=== PATIENT | female | born 2000 | race Hispanic/Latino ===

== ENCOUNTER 2020-08-16 00:18 | Inpatient (IN) | payer OTHER ==
[2020-08-16] VITALS (10 sets, daily range): BP systolic 97–115; BP diastolic 53–71
[~2020-08-16] VITALS: Ht 154.9 cm; Wt 67.5 kg
[2020-08-16] MEDS ORDERED: LACTATED RINGER'S 1000 ML IV STA (01:31)
[2020-08-16] MEDS ORDERED: PENICILLIN G POTASSIUM IV 5 MU in D5W MINI-BAG PLUS 100 ML IV STA (01:31)
[2020-08-16] MEDS ORDERED: BETAMETHASONE SOLUSPAN 6MG/ML 5ML VIAL (J0702 PER 3MG) IM SCH (01:45)
[2020-08-16] MEDS ORDERED: ONDANSETRON 4MG/2ML VIAL IV PRN (01:45)
[2020-08-16] MEDS ORDERED: miSOPROStol 25 MCG 1/4 TAB (S0191) PO ONE (01:45)
[2020-08-16] MEDS: LR 1,000 ML IV SCH ×2 (02:02→07:32)
--- NOTE | 2020-08-16 02:08 | HPEPDOC ---
Obstetrical History & Physical General Date of Admission Aug 16, 2020 at 01:42 History of Present Illness 20 yo @ 35+4 who presents to triage with Leakage of clear fluids starting at 11pm. patient is transfer of care from [place]. she got in town on Tuesday and is still on quarantine. she reports no complications this excpet that she was told that she had a band around her placenta when she was 20 weeks. she has had multiple F/U US Which per her report said that the band resolved. we do not have access to her records. RN tried to contact her pior mauro sullivan but were unable to reach them. patient reports regular movements. she denies any contractions. she has no other concerns. Chief Complaint: LOF, pre-term Care Care: Other (transfer of care on tuesday. we do not have access to her records) Dating Final EDC: Sep 16, 2020 Final EDC by: LMP Antepartum Course Diagnos(e)s 1. Transfer of care at 35+4- no records 2. Band around placenta that resolved 3. PPROM 4. GBS unknown Past Medical History Past Obstetrical History : Past Obstetrical History: Multigravida Type of Delivery: Spontaneous Vaginal Del. Sex of : Female Weight of Infant (grams): 6 (lb) Complications: No SUPERVISORY AIDE History: No pertinent history Past Medical History Surgical History: Denies/None Family History Significant Family History: No pertinent family hx Social History Marital Status: Family situation: Spouse/partner home Psychosocial History: No pertinent psych hx * Smoker: non-smoker Drugs: denies Abuse Violence Screening Have you been hit/kicked/slapp: No Have you been sexually assault: No Imunizations Tdap status: current Influenza Status: current Allergies Coded Allergies: No Known Allergies (Verified Allergy, Unknown, 08/16/20) Physical Examination Physical Examination GENERAL: Alert and oriented times three. BREAST: . ABDOMEN: Gravid and non-tender to touch. FETUS: Is vertex (VTX) by US, MVP 4cm HEART RATE: Regular rate and rhythm. LUNGS: Normal work of breathing Spec: Positive nitrizine, pooling noted of a lot of clear fluids EXTREMITIES: No edema. Pertinent Laboratoy Data Blood Type: O+ RBC Antibody Screen: Negative HIV: Unknown Hepatitis B: Unknown Rapid Plasma Reagin: Unknown Rubella: Unknown Varicella: Unknown Chlamydia/Gonorrhea: Unknown Group B Streptococcus: Unknown Quad Screen Test: Unknown Cystic Fibrosis: Unknown Steroid Therapy Steroid Therapy: Yes Date #1: Aug 16, 2020 Reason PPROM @ 35+4 Vaginal Examination Dilation: 1cm Assessment Heart Rate (FHR): 120 Variability: Moderate Accelerations: Positive Decelerations: Variable Tocometer Contractions: Yes Frequency: irregular Duration: less than 60 seconds Strength: palpated as mild Assessment/Plan Assessment 20 yo @ 35+4 who presents to triage with Leakage of clear fluids starting at 11pm. SROM check done and positive for nitrizine and diffuse pooling of clear fluids in the vagina. still have normal fluids around baby. patient is not contraction. she is on quarantine, has been in town for 7 days. normal vitals, no s/s of infection. 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 Counseled on Pitocin and induction of labor (IOL). Lactated Ringers (LR): Bolus 1000 mL, then at 125 mL/hr. Anticipate normal spontaneous delivery (). C-S as appropriate. Labor and Delivery Counseling REVIEWED CONSENT FOR VAGINAL DELIVERY WHICH IS DELIVERY THROUGH VAGINA. YOU MAY REQUIRE AUGMENTATION WITH PITOCIN YOU MAY REQUIRE EPISIOTOMY TO ALLOW BABY TO DELIVER VAGINALLY WHEN PUSHING BECOMES INEFFECTIVE OR IF DELIVERY NEEDS TO BE EXPEDITED FOR REASONS. CS MAY BE REQUIRED ON URGENT BASIS DUE TO ENVIRONMENT OR MATERNAL REASONS WHEN DELIVERY NEEDS TO BE EXPEDITED. RISKS TO INTERVENTION IS VAGINAL LACERATIONS REPAIR OF EPISIOTOMY CERVICAL REPAIR BOWEL OR BLADDER INJURY RISK OF PP HEMORRHAGE REQUIRE BLOOD TRANSFUSION RISK HYSTERECTOMY RISK ADMISSION NICU, RISK TACHYSYSTOLE RISK OF SCRATCHES , HEMATOMAS , INTRACRANIAL BLEED. PRESENTLY CATEGORY 1 STRIP SAFE TO PROCEED CLAUDE FIELD MD Aug 16, 2020 02:08
[2020-08-16 02:25] LABS: HEMATOCRIT 35.1 % (36.0-47.0); HEMOGLOBIN 11.6 g/dl (12.0-15.5); MEAN CORPUSCULAR HEMOGLOBIN 30.7 pg (27.0-33.0); MEAN CORPUSCULAR VOLUME 92.9 fl (80.0-96.0); PLATELET COUNT, AUTOMATED 171 10^3/uL (150-450); RED BLOOD COUNT 3.78 10^6/uL (4.00-5.40)
[2020-08-16 03:35] LABS: HIV 1&2 SCREEN CENTAUR NEGATIVE (NEGATIVE)
[2020-08-16] MEDS: PENICILLIN G POTASSIUM IV 2.5 MU in IV 1 EA IV SCH ×5 (06:46→22:36)
[2020-08-16 18:40] LABS: HEMATOCRIT 34.9 % (36.0-47.0); HEMOGLOBIN 11.3 g/dl (12.0-15.5); MEAN CORPUSCULAR HEMOGLOBIN 29.8 pg (27.0-33.0); MEAN CORPUSCULAR HGB CONC 32.4 g/dl (32.0-36.5); MEAN CORPUSCULAR VOLUME 92.1 fl (80.0-96.0); PLATELET COUNT, AUTOMATED 175 10^3/uL (150-450); RED BLOOD COUNT 3.79 10^6/uL (4.00-5.40); WHITE BLOOD COUNT 11.9 10^3/uL (4.0-10.0)
[2020-08-16] MEDS ORDERED: PROMETHAZINE INJ 25 MG/ML VIAL (J2550) IV ONE (20:15)
[2020-08-16] MEDS ORDERED: BUTORPHANOL 2 MG/ML INJ (J0595) IV ONE (20:15)
--- NOTE | 2020-08-16 22:34 | IPNPDOC ---
Text Note Date of Service The patient was seen on 08/16/20. NOTE 08/16/20 1027 PM 20 YO ADMITTED HISTORY PPROM NO CONTRACTIONS GBS S TATUS UNKNOWN, COVID NEGATIVE . PLAN OF CARE WAS TO COMPLETE STEROID THEN IOL . PLAN TO MONITOR TEMPERATURE AND MONITOR CBC Q 12 H UNLESS ELEVATED TEMPERATURE TACHYCARDIA , ELEVATED WBC WAIT UNTIL STEROID COMPLETE. MONITOR SHOWS LATES WITH RECOVERY, PATIENT RECEIVED IV PAIN MEDICATION, THEREFORE REACTIVITY NOT RELIABLE. EXAMINATION STERILE 6 WELL APPLIED TO CERVIX, NO INCREASED HEAT I N VAGINA, -2 STATION SAFE TO PROCEED VS,Fishbone, I+O VS, Fishbone, I+O Laboratory Tests 08/16/20 02:12 08/16/20 18:30 Vital Signs Date Time Temp Pulse Resp B/P (MAP) Pulse Ox O2 Delivery O2 Flow Rate FiO2 08/16/20 20:41 18 08/16/20 18:00 97.8 67 108/71 (83) I&O- Last 24 Hours up to 6 AM 08/16/20 06:00 Intake Total 240 ml Balance 240 ml Edilberto Freitas MD Aug 16, 2020 22:34
[2020-08-16] MEDS ORDERED: OXYTOCIN 30 UNITS IN 0.9% NaCl 500ML IV BAG (J2590) As Ordered ONE (23:29)
[2020-08-16] MEDS ORDERED: LR 1,000 ML IV SCH (23:47)
[2020-08-17] MEDS ORDERED: OXYTOCIN DRIP 30 UNITS in IV 1 EA IV ONE ×2
[2020-08-17] MEDS ORDERED: IBUPROFEN 800 MG TAB PO PRN
[2020-08-17] MEDS ORDERED: ANUSOL HC CREAM 30GM TOP PRN
[2020-08-17] MEDS ORDERED: DOCUSATE SODIUM 100 MG CAP PO PRN
[2020-08-17] MEDS ORDERED: ACETAMINOPHEN TAB 650MG DOSE (2X325MG) PO PRN
[2020-08-17] MEDS ORDERED: METHYLERGONOVINE MALEATE 0.2 MG TAB PO PRN
[2020-08-17] MEDS ORDERED: MOM 30ML SUSPENSION UDC PO PRN
[2020-08-17] MEDS ORDERED: RHOGAM 300 MCG (1500 IU) INJ (J2790) IM SCH
[2020-08-17] MEDS ORDERED: OXYTOCIN INJ 10 UNITS/ML VIAL (J2590) IV ONE
[2020-08-17] MEDS ORDERED: DIBUCAINE 1% OINTMENT 30GM TOP PRN
[2020-08-17] MEDS ORDERED: ACETAMINOPHEN 500 MG TAB PO PRN
[2020-08-17] MEDS ORDERED: IBUPROFEN 600MG TAB PO PRN
[2020-08-17] MEDS ORDERED: MEASLES,MUMPS,RUBELLA VACCINE INJ (MMR-II) (90707) SC SCH
--- NOTE | 2020-08-17 00:03 | DNPDOC ---
[facility] Delivery Note Delivery Note DATE OF DELIVERY: 08/16/2020 PREDELIVERY DIAGNOSIS: 35.5 weeks' gestation and labor. POST DELIVERY DIAGNOSIS: Delivered. PROCEDURE: [Spontaneous vaginal delivery CHILD CENTER ASSISTANT: Dr. Edvin QUINN MD ANESTHESIA: IV MEDS ESTIMATED BLOOD LOSS: 200 ML FINDINGS: 6 pound 3 ounce FEMALE infant, Score 8/9 nuchal cord times 1 DELIVERY SUMMARY: Patient is a 20 year-old 2 now para 2 who was admitted to labor and delivery for PPROM HAD IV ANTIBIOTICS GBS STATUS UNKNOWN AND HAD STEROIDS . WORK UP IN ACTIVE LABOR DELIVERED OVER INTACT PERINEUM LIVE FEMALE 8/9 CORD X1 PLACENTA COMPLETE REVIE CERVIX VAGINA AND PERINEUM INTACT UTERUS CONTRACTED DOWN WITH PITOCIN . Edilberto Quinn MD Aug 17, 2020 00:03
[2020-08-17 00:05] LABS: CORD GAS O2 SAT V 87.9 %; CORD GAS PCO2 V 35.6 mmHg; CORD GAS PH V 7.408 UNITS; CORD GAS PO2 V 40.2 mmHg; CORD GAS SBC V 22.6 MEQ/L; CORD GAS TCO2 V 23.1 MEQ/L
[2020-08-17 00:06] LABS: CORD GAS HCO3 A 19.8 MEQ/L; CORD GAS O2 SAT A 87.4 %; CORD GAS PCO2 A 33.1 mmHg; CORD GAS PH A 7.395 UNITS; CORD GAS PO2 A 39.9 mmHg; CORD GAS TCO2 A 20.8 MEQ/L
[2020-08-17 01:20] VITALS: BP 120/58
[2020-08-17 06:30] VITALS: BP 114/66
[2020-08-17 07:28] LABS: HEMATOCRIT 32.5 % (36.0-47.0); HEMOGLOBIN 10.4 g/dl (12.0-15.5); MEAN CORPUSCULAR HEMOGLOBIN 29.5 pg (27.0-33.0); MEAN CORPUSCULAR VOLUME 92.3 fl (80.0-96.0); PLATELET COUNT, AUTOMATED 176 10^3/uL (150-450); RED BLOOD COUNT 3.52 10^6/uL (4.00-5.40); WHITE BLOOD COUNT 12.3 10^3/uL (4.0-10.0)
[2020-08-17] MEDS: PRENATAL VITAMINS CHEWABLE TABLET PO SCH (09:15)
[2020-08-17] MEDS ORDERED: OXYTOCIN INJ 10 UNITS/ML VIAL (J2590) As Ordered ONE (14:55)
[2020-08-17 18:00] VITALS: BP 109/63
[2020-08-18 05:13] VITALS: BP 116/58
[2020-08-18] MEDS ORDERED: DIBU10OI TOP (06:50)
[2020-08-18] MEDS ORDERED: IBUP80TA PO (06:50)
[2020-08-18] MEDS ORDERED: DOCU100C16 PO (06:50)
[2020-08-18] MEDS: PRENATAL VITAMINS CHEWABLE TABLET PO SCH (10:44)
--- NOTE | 2020-08-19 07:12 | DS ---
DATE OF ADMISSION: 08/16/2020 DATE OF DISCHARGE: 08/18/2020 This lady is a 20-year-old, 2, now para 2, recent transfer in, was presently on quarantine, and admitted with history of being 35 and 4 weeks of gestation with spontaneous rupture of membranes. GBS status is unknown. She had some I.V. pain meds. She was given steroids for neuro completeness and prophylactic antibiotics because of GBS status unknown. She had a spontaneous vaginal delivery of a live female infant, 6 pounds 3 ounces (2730 grams), Apgars of 8 and 9 at one and five minutes respectively. Arterial pH was 7.39, base access -4.0, venous pH 7.40, base access -2.0. Baby had cord around the neck times one. Presently this morning, her blood pressure was 116/58, respirations 15, pulse 54, temperature 97.9. Her admitting hemoglobin was 11.6, hematocrit 35.1 and platelets 171,000. White count was 7.0 on admission. On discharge, white count 12.3, hemoglobin 10.4, hematocrit 32.5 and platelets 176,000. The rest of the examination was unremarkable. Normocephalic, atraumatic. Neck full range of motion. Pupils equal and reactive to light. Distal pulses are symmetric. No evidence of DVT, PE or superficial phlebitis. Chest is clear bilaterally to bases. No wheezes or rhonchi. No CVA tenderness. Abdomen soft, four quadrant bowel sounds are noted. No rashes, lesions or pruritis. No arthralgias or myalgias. No complaint of joint pain. No complaint of cough, wheeze, shortness of breath or dyspnea on exertion. No nausea, vomiting, diarrhea or constipation. IN SUMMARY: I have a pre-termer with delivery of a live female infant, discharged improved. All questions were answered; 20-minute discussion. Patient is to pickup her meds at [place]. She is to have a six-week checkup at [facility]. MTDD
--- NOTE | 2020-08-19 07:41 | IPN ---
DATE: 08/17/2020 SUBJECTIVE: This lady is a 20-year-old 2 para 2 now who came in at 35 weeks and 4 weeks of gestation with spontaneous rupture of membranes and GBS status unknown. She had one shot of steroids, prophylactic GBS coverage with penicillin q. 12 hours, white counts and q. 4 hours temperatures. She eventually got into labor on her own, had a spontaneous vaginal delivery after IV meds, female infant, 6 pounds, 3 ounces, 2730 grams, Apgars of 8 and 9 at 1 and 5 minutes respectively. Cord around the neck x1. Arterial pH 7.39, base excess - 4.0, venous pH 7.40, base excess is 2.0. Her admitting hemoglobin was 11.6, hematocrit 35.1 and platelets were 171,000. Her white count was 7.0. day #1, her white count was 12.3, hematocrit 32.5, platelets 176,000. PHYSICAL EXAMINATION: Vital signs today: Her blood pressure was 114/66, respirations are 16, pulse is 50 and temperature is 97.9. She has never had a fever or a temperature. No foul lochia. The rest of the examination is unremarkable. Normocephalic, atraumatic. Neck: Full range of motion. Pupils equal and reactive to light. Distal pulses are symmetric. No evidence of DVT, PE or superficial phlebitis. Chest is clear bilaterally at the bases, no wheezes or rhonchi. No CVA tenderness. Abdomen is soft, four quadrant bowel sounds are noted. The perineum is intact. ASSESSMENT: In summary, I have a pre-term at 35 and 5 weeks of gestation, delivered live female , baby is in the NICU, the only issue is the blood sugars, otherwise the baby is doing well and so is mom. Plans are for discharge tomorrow. All questions were answered. Patient is to sisal picker her meds at [place] and have a six weeks check at [facility].A 20 minute discussion. KAIA
== END 2020-08-18 12:00 | disposition home or self-care (01) | DRG 807 ==
LOC: M LDO 00:18 → M LDI 01:42 → M OBS 08-17 01:20
PROVIDERS: ADMIT Obstetrics & Gynecology; ATTEND Obstetrics & Gynecology
PROC: 10E0XZZ Delivery of Products of Conception, External Approach (ICD-10-PCS; principal; 2020-08-16)
DX: O42.113 Preterm premature rupture of membranes, onset of labor more than 24 hours following rupture, third trimester (principal); Z37.0 Single live birth; Z3A.35 35 weeks gestation of pregnancy; O69.81X0 Labor and delivery complicated by cord around neck, without compression, not applicable or unspecified